=== PATIENT | female | born 1990 | race Caucasian/White ===

== ENCOUNTER 2023-05-25 16:41 | Inpatient (IN) ==
--- NOTE | 2023-05-25 16:54 | History & Physical Report ---
Date of Service May 25, 2023 Assessment & Plan (1) Polyhydramnios: Plan: Repeat section. The patient was counseled to the nature of the procedure including alternatives such as labor. Risks were discussed including bleeding infection injury to bowel bladder ureter vessels and even baby. The risks of internal organ injury were discussed as being higher with prior sections. Deep Vein Thrombosis, pulmonary embolus and breakdown of the incision discussed. Deep vein thrombosis pulmonary embolus hernia and failure of the incision to heal were discussed Patient verbalized understanding of this and was given ample time to ask questions Examination is 6 cm bulging membranes 100% nothing palpable as far as presenting part ultrasounds is done and there is a floating head to slightly transverse to the right side Patient also wishes bilateral tubal ligation salpingectomy Admission and Anticipated Discharge Date Admission Date: May 25, 2023 History of Present Illness Primary Care Provider: Dulce Maddox MD JAZIEL Calculator Estimated Delivery Date Method Current WG Current Estimate 05/28/23 LMP (Certain) 39w 2d LMP: 08/21/22 : 2 Full term: 1 Premature: 0 Total Number of Induced Abortions: 0 Total Number of Spontaneous Abortions: 0 Ectopics: 0 Multiple births: 1 Number of Living Children: 2 and Delivery Plans COVID POSITIVE 02/25/23 (SX STARTED 02/21/23) GDM in prior *Begin Monthly growth US @ 24wks. H/o CS (twins, cord prolapse) - Desires repeat CS, considering btl C/S SCHEDULED FOR 05/26/[address] RIZVI Iron deficiency anemia *Heme consult Polyhydramnios *Weekly NSTs if greater or equal to 12 *Weekly AFIs @ Dx *If pocket >16 refer to [facility] *Deliver between [id number] Allergies Allergy/AdvReac Type Severity Reaction Status Date / Time No Known Drug Allergies Allergy Unknown Verified 05/23/23 15:08 Home Medications Medication Instructions Recorded Confirmed Type docosahexaenoic acid 200 mg 200 mg PO QAM 10/07/22 05/23/23 History capsule ( DHA) acetone (urine) test (Ketone Urine #50 ea 12/27/22 05/23/23 Rx Test strips) blood sugar diagnostic (OneTouch #150 ea 12/27/22 05/23/23 Rx Verio test strips) blood-glucose meter (OneTouch #1 ea 12/27/22 05/23/23 Rx Verio Reflect Meter) lancets 33 gauge (ConnorTouch Delica #150 ea 12/27/22 05/23/23 Rx Plus Lancet) ferrous sulfate 325 mg (65 mg 325 mg PO UD 05/07/23 05/23/23 History iron) capsule,extended release vitamin B12 500 mcg-folic acid 400 1 tab PO QAM 05/07/23 05/23/23 History mcg tablet Patient History Medical History (Updated 05/25/23 @ 16:50 by Maida Thapa RN) History of COVID-19 (~01/2023) resolved Hx of renal calculi LPRD (laryngopharyngeal reflux disease) Gestational diabetes Diet controlled Surgical History History of removal of skin mole facial, benign History of History of wisdom tooth extraction Family History Mother Hearing loss Hypertension Grandmother (Maternal) Hypertension Stroke Heart disease Grandfather (Maternal) Hypertension Stroke Heart disease Aunt Ovarian cancer maternal great aunt Other Cancer No family history of adverse response to anesthesia No family history of bleeding disorder Denies family history of Prostate cancer Breast cancer Colorectal cancer Social History Smoking Status: Never smoker Second Hand Exposure: No; Do You Dip or Chew Tobacco: No; Hx Alcohol Use: No Hx Substance Use: No Preferred Language: [place]an Communication Ability: Effective Retail Merchandiser Required: No Beliefs That Will Affect Care: None marital status: marital status details: Tim 37 [phone] Current Living Situation: Spouse and Family Current Living Situation Comment: lives with 2 kids, spouse, 2 dog, 1 cat current occupational status: employed current occupation: [employer] Feels Safe at Home: Yes Assistive Devices: Glasses Physical Exam Constitutional: WD/WN, vitals as above well developed and well nourished Respiratory: normal respiratory effort, lungs clear to auscultation normal respiratory effort Cardiovascular: RRR, no murmur, no edema Gastrointestinal (Abdomen): normal bowel sounds, soft, nontender, no hepatosplenomegaly Coding Level of Care Code None Diagnoses Polyhydramnios O40.9XX0
--- NOTE | 2023-05-25 16:59 | Anesthesiology Consultation ---
Date of Service May 25, 2023 Assessment & Plan Chart Review Chart Review: Acceptable Risk for Surgery Consults Requested none ASA [id number] Proposed Anesthesia Anesthesia Type: Spinal Risk / Benefits Reviewed With: PT / POA / Parent / Guardian, Accepts Plan and Informed Consent Obtained History Surgery Operation Date: 05/25/23 16:45 Proposed Procedures p Section in LD - J. Chucky Finney MD, FACOG Allergies Allergy/AdvReac Type Severity Reaction Status Date / Time No Known Drug Allergies Allergy Unknown Verified 05/23/23 15:08 Medications Home Medications Medication Instructions Recorded Confirmed Last Taken docosahexaenoic acid 200 mg 200 mg PO QAM 10/07/22 05/23/23 Unknown capsule ( DHA) acetone (urine) test (Ketone Urine #50 ea 12/27/22 05/23/23 Unknown Test strips) blood sugar diagnostic (OneTouch #150 ea 12/27/22 05/23/23 Unknown Verio test strips) blood-glucose meter (OneTouch #1 ea 12/27/22 05/23/23 Unknown Verio Reflect Meter) lancets 33 gauge (OneTouch Delica #150 ea 12/27/22 05/23/23 Unknown Plus Lancet) ferrous sulfate 325 mg (65 mg 325 mg PO UD 05/07/23 05/23/23 Unknown iron) capsule,extended release vitamin B12 500 mcg-folic acid 400 1 tab PO QAM 05/07/23 05/23/23 Unknown mcg tablet NPO Date Last Intake of Fluids: 05/25/23 Time Last Intake of Fluids: 14:00 Date Last Intake of Solids: 05/25/23 Time Last Intake of Solids: 14:00 Past Medical History Medical History History of COVID-19 (~01/2023) resolved Hx of renal calculi LPRD (laryngopharyngeal reflux disease) Gestational diabetes Diet controlled Exercise / Class Metabolic Activity II 4-5 Yardwork/Stairs/Walk up hill Past Family History Family History Mother Hearing loss Hypertension Grandmother (Maternal) Hypertension Stroke Heart disease Grandfather (Maternal) Hypertension Stroke Heart disease Aunt Ovarian cancer maternal great aunt Other Cancer No family history of adverse response to anesthesia No family history of bleeding disorder Denies family history of Prostate cancer Breast cancer Colorectal cancer Past Surgical History Surgical History History of removal of skin mole facial, benign History of History of wisdom tooth extraction Past Anesthesia History No Hx of Anesthesia Complications and No Family Hx of Anesthesia Complications History of PONV No Hx of PONV and No Hx of Motion Sickness Social History Smoking Status: Never smoker Do You Dip or Chew Tobacco: No Hx Alcohol Use: No Hx Substance Use: No substance use type: does not use Physical Exam Vital Signs Last Vital Signs Pulse 102 H 05/25/23 16:54 BP 143/82 H 05/25/23 16:54 ENMT Mouth: no dentition abnormality Thyromental Distance: > or= 3.5 Finger Breadths Mallampati Class: II Neck normal visual inspection Respiratory normal respiratory effort Auscultation: lungs clear to auscultation bilaterally Cardiovascular Rate/Rhythm: regular rate and regular rhythm
[2023-05-25] MEDS: LACTATED RINGER'S 1,000 ML IV SCH (17:02)
[2023-05-25] MEDS ORDERED: fentaNYL citrate PF 100 MCG/2 ML VIAL ONE (17:02)
[2023-05-25] MEDS ORDERED: MoRPHine SULFATE PF 1 MG/ML 10 ML AMP/VIAL ONE (17:03)
[2023-05-25] MEDS: CITRIC ACID/SODIUM CITRATE 15 ML UDC PO SCH (17:03)
[2023-05-25] MEDS: ceFAZolin 2000MG 2,000 MG/15 ML SYR IV SCH (17:03)
[2023-05-25 17:06] LABS: Basophils # (auto) 0.05 K/uL (0.00-0.20); Basophils % (auto) 0.4 %; Eosinophils # (auto) 0.02 K/uL (0.00-0.50); Eosinophils % (auto) 0.2 %; Hemoglobin 12.6 g/dl (12.0-16.0); Immature Granulocytes # (auto) 0.17 K/uL (0.01-0.20); Immature Granulocytes % (auto) 1.4 %; Lymphocytes # (auto) 1.48 K/uL (1.20-3.40); Lymphocytes % (auto) 12.6 %; Mean Corpuscular Hemoglobin 28.6 pg (25.0-34.0); Mean Corpuscular Hgb Conc 32.3 g/dL (32.0-36.0); Mean Corpuscular Volume 88.4 fL (80.0-100.0); Mean Platelet Volume 9.5 fL (9.4-12.4); Monocytes # (auto) 0.98 K/uL (0.11-0.59); Monocytes % (auto) 8.3 %; Neutrophils # (auto) 9.04 K/uL (1.40-6.50); Neutrophils % (auto) 77.1 %; Platelet Count 238 K/uL (130-400); RDW Coefficient of Variation 18.5 % (11.5-14.5); RDW Standard Deviation 56.7 fL (36.4-46.3); Red Blood Count 4.41 M/uL (4.20-5.40); White Blood Count 11.74 K/ul (4.8-10.8)
[2023-05-25] MEDS ORDERED: MEPERIDINE HCL 25 MG/ML CARP/VIAL IV PRN (17:22)
[2023-05-25] MEDS ORDERED: LACTATED RINGER'S 500 ML IV PRN (17:22)
[2023-05-25] MEDS ORDERED: NALOXONE HCL 0.4 MG/1 ML VIAL/CARP IV PRN (17:22)
[2023-05-25] MEDS ORDERED: MoRPHine SULFATE PF 1 MG/ML 10 ML AMP/VIAL INT SPINAL ONE (17:22)
[2023-05-25] MEDS ORDERED: NALOXONE HCL 1 MG in SODIUM CHLORIDE 0.9% 1,000 ML IV PRN (17:22)
[2023-05-25] MEDS ORDERED: NALBUPHINE HCL 5 MG in SYRINGE 0 ML IV PRN (17:22)
[2023-05-25] MEDS ORDERED: diphenhydrAMINE 50 MG/ML VIAL IV PRN ×2 (17:22→19:08)
[2023-05-25] MEDS ORDERED: NALOXONE HCL 0.08 MG in SYRINGE 1.8 ML IV PRN (17:22)
[2023-05-25] MEDS ORDERED: ePHEDrine sulfate 50 MG/ML AMP IV PRN (17:22)
[2023-05-25] MEDS ORDERED: ONDANSETRON INJ 2 MG/ML 2 ML VIAL IV PRN ×2 (17:22→19:08)
[2023-05-25] MEDS ORDERED: SODIUM CHLORIDE 0.9% 1,000 ML IV SCH (17:30)
[2023-05-25] MEDS ORDERED: DC INTRASPINAL MORPHINE SCH (17:30)
[2023-05-25] MEDS ORDERED: NO NARCOTICS OR SEDATIVES SCH (17:30)
[2023-05-25] MEDS ORDERED: OXYTOCIN 10 UNITS/ML VIAL ONE (17:33)
[2023-05-25] MEDS ORDERED: ONDANSETRON INJ 2 MG/ML 2 ML VIAL ONE (17:33)
[2023-05-25 17:57] LABS: Base Excess Cord Arterial Bld -2.1 mEq/L (-9-1.8); CO2 Cord Arterial Blood 58 mmHg (39.1-73.5); HCO3 Cord Arterial Blood 26 mmol/L (19.7-28.5); Oxygen Sat Cord Arterial Blood < 60.0 % (<60); PO2 Cord Arterial Blood < 20 mmHg (4.1-31.7); pH Cord Arterial Blood 7.26 (7.1-7.38)
[2023-05-25 17:58] LABS: Base Excess Cord Venous Blood -1.8 mEq/L (-7.7-1.9); Cord Venous Blood HCO3 24 mmol/L (18.4-26.8); Cord Venous Blood PCO2 45 mmHg (30.4-57.2); Cord Venous Blood PO2 21 mmHg (14.1-43.3); Cord Venous Blood pH 7.34 (7.20-7.44); O2 Saturation Cord Venous Bld < 60.0 % (<68)
--- NOTE | 2023-05-25 18:01 | Operative Report ---
PG Post Operative Report Pre & Post Diagnosis Operation Date: 05/25/23 16:45 <No data on this case meets the specified criteria> Previous section active labor request permanent sterilization I identified the patient and participated in the time-out.: Yes Procedure Operation Date: 05/25/23 16:45 <No data on this case meets the specified criteria> Low segment transverse section and bilateral tubal ligation Surgeon Shiela Finney MD, FACOG Dinkey Engine Firer/Fireman Kayla BUTTS Estimated Blood Loss 600 Findings Consistent with Post-Op Diagnosis Specimens Cord blood cord gas Description of Procedure Regional anesthetic had been given by anesthesia patient was prepped and draped with a leftward tilt preoperative antibiotics had been given in appropriate timing by anesthesiology. Once the prep was allowed to fully dry timeout was performed. Pickups with teeth were used to test the incision area was found to be adequate for incision as the patient did not feel sharp pain. Scalpel was used to make a Pfannenstiel incision on the lower abdomen. We then cut through the subcutaneous fat down to the level of the anterior rectus sheath fascia this was cut in the midline and then extended laterally with the curved Dave scissors. At this stage we then placed 2 Lizette clamps on the anterior aspect of the fascia. Using the curved Dave's we are able to dissect the fascia superiorly away from the rectus muscles. Care was taken to maintain hemostasis. Lizette clamps were then placed to the inferior aspect of the anterior sheath of the fascia. Fascia was then dissected away from the rectus muscles inferiorly towards the pubic bone. A Lizette was then placed in the midline both inferiorly and superiorly. This was to allow exposure by retraction rectus muscles were in the midline with were then able to cut through the peritoneum and then enter the peritoneal cavity. Opening was enlarged to allow exposure of the peritoneal cavity both superiorly and inferiorly. Once adequate space was obtained a bladder retractor was placed to expose the lower segment Metzenbaums were used to dissect the bladder flap inferiorly away from the uterus. This was done sharply bladder retractor was then repositioned to expose the lower segment of the uterus Fresh scalpel was used to make a low transverse incision on the uterus. Uterus was then entered bluntly with the operators finger, membranes ruptured and the opening was enlarged using the operators fingers bluntly pulling superiorly and inferiorly to allow exposure. Baby was delivered by first flexion of the head elevation of the head out of the pelvis and then pressure by the assistant press operator offset on the maternal abdomen. Baby's head was then delivered mouth and then nares were suctioned and then usi ng gentle traction the baby was fully delivered. Live vigorous infant. Fluid was clear cord clamped and cut cord gases obtained cord blood obtained baby handed to pediatrics. Placenta removed was removed with traction we ensure the entire placenta was removed with a moist lap sponge into the uterus. Note baby's head was floating at the time of rupture of membranes but I was able to guided down into the pelvis for delivery Uterus was then exteriorized. IV Pitocin had been started by anesthesia tone improved there were no extensions the uterus was then closed using 0 Monocryl in a 2 layer closure the first layer closed in a running locked fashion from left to right and then a second closure from left to right in a running nonlocked fashion. At this stage hemostasis was excellent. Confirmed with the patient verbally that she wishes to proceed with bilateral tubal ligation this was performed using LigaSure grasping the distal end of the right fallopian tube and using the LigaSure to coagulate and cut the mesovarium attachments of the ovary once the tube was fully removed down to the medial and close to the uterus it was sent to pathology the exact same process was repeated on the right now only placed the uterus back in the pelvic cavity the uterine this was expected along with fallopian tube areas and these were hemostatic Uterus was placed back in the peritoneal cavity with suction irrigation out and inspection of the uterus at this stage revealed excellent hemostasis Retractors were removed urine color was clear at this stage of the case we inspected the rectus muscles they were hemostatic fascia was closed with 0 Vicryl subcutaneous fat was irrigated and closed with 3-0 Vicryl skin closed with 4-0 subcuticular Monocryl I attest to the content of the Intraoperative Record and any orders documented therein. Any exceptions are noted below. OB Procedure Charges 24236
--- NOTE | 2023-05-25 18:22 | Anesthesiology Progress Note ---
Date of Service May 25, 2023 Anesthesia Post Procedure Vital Signs Vital Signs: Temp Pulse Resp BP Pulse Ox 05/25/23 18:20 88 120/58 L 05/25/23 18:14 88 96 05/25/23 18:09 92 H 98 05/25/23 18:04 96 05/25/23 18:04 91 H 05/25/23 18:04 86 125/58 L 05/25/23 16:54 102 H 143/82 H 05/25/23 16:51 98.2 F 20 Transfer of Care Handoff Completed per policy Notes Mental Status: alert / awake / arousable and participated in evaluation Nausea / Vomiting: adequately controlled Pain: adequately controlled Airway Patency, RR, SpO2: stable & adequate BP & HR: stable & adequate Hydration State: stable & adequate Neuraxial Anesthesia: was administered and sensory block is resolving Anesthetic Complications: no major complications apparent and Pt Satisfied with anesthetic care
[2023-05-25] MEDS ORDERED: LACTATED RINGER'S 1,000 ML IV SCH (19:08)
[2023-05-25] MEDS ORDERED: PROMETHAZINE HCL 25 MG in SODIUM CHLORIDE 0.9% 50 ML IV PRN (19:08)
[2023-05-25] MEDS ORDERED: oxyCODONE/ACETAMINOPHEN 5mg/325mg TAB PO PRN (19:08)
[2023-05-25] MEDS ORDERED: MAGNESIUM HYDROXIDE SUSP 30 ML UDC PO PRN (19:08)
[2023-05-25] MEDS ORDERED: BENZOCAINE 20% SPRY 85 APPLN/85 GM CAN EXT PRN (19:08)
[2023-05-25] MEDS ORDERED: DIPHTHER/TETAN/PERTUS Vaccine (Tdap, Adol/Adult) 0.5mL IM ONE (19:08)
[2023-05-25] MEDS ORDERED: diphenhydrAMINE Capsule 25 MG CAP PO PRN (19:08)
[2023-05-25] MEDS ORDERED: SENNA 8.6 MG TAB PO PRN (19:08)
[2023-05-25] MEDS ORDERED: HYDROCORTISONE ACETATE 25 MG SUPP PR PRN (19:08)
[2023-05-25] MEDS: OXYTOCIN 20 UNITS/LR 1,002 ML IV SCH (20:15)
[2023-05-25] MEDS: SIMETHICONE 80 MG CHEW PO SCH (22:47)
[2023-05-25] MEDS: DOCUSATE SODIUM 100 MG CAP PO SCH (22:47)
[2023-05-26] MEDS: KETOROLAC 30 MG/ML VIAL IV PRN (03:47)
[2023-05-26 06:30] LABS: Basophils # (auto) 0.05 K/uL (0.00-0.20); Basophils % (auto) 0.4 %; Eosinophils # (auto) 0.03 K/uL (0.00-0.50); Eosinophils % (auto) 0.2 %; Hematocrit (blood only) 35.2 % (37.0-47.0); Hemoglobin 11.6 g/dl (12.0-16.0); Immature Granulocytes # (auto) 0.11 K/uL (0.01-0.20); Immature Granulocytes % (auto) 0.9 %; Lymphocytes # (auto) 1.04 K/uL (1.20-3.40); Lymphocytes % (auto) 8.5 %; Mean Corpuscular Hemoglobin 28.6 pg (25.0-34.0); Mean Corpuscular Volume 86.9 fL (80.0-100.0); Monocytes # (auto) 0.86 K/uL (0.11-0.59); Neutrophils # (auto) 10.18 K/uL (1.40-6.50); Platelet Count 203 K/uL (130-400); RDW Coefficient of Variation 18.5 % (11.5-14.5); RDW Standard Deviation 57.1 fL (36.4-46.3); Red Blood Count 4.05 M/uL (4.20-5.40); White Blood Count 12.27 K/ul (4.8-10.8)
--- NOTE | 2023-05-26 07:27 | Obstetrical Progress Note ---
Date of Service <Xochitl Joyce MD - Last Filed: 05/26/23 07:27> May 26, 2023 Assessment & Plan <Xochitl Joyce MD - Last Filed: 05/26/23 07:27> (1) S/P : (2) Encounter for assessment: Plan Patient with the above mentioned history and findings was evaluated at bedside and found awake, alert, oriented in all spheres, afebrile, and in no acute distress. Vital signs showed no fever and blood pressures remained stable. Her blood type is O pos and today's hemoglobin is adequate at 11.6 g/dL. Serologies are negative for GBS and patient is Rubella immune. Overall, patient is doing well clinically. Therefore, will encourage ambulation as tolerated and will resume regular diet. Indwelling Germain will be removed. Continue routine pp course. All questions were answered. <Shiela Finney MD, FACOG - Last Filed: 05/26/23 07:32> (1) S/P : (2) Encounter for assessment: Subjective <Xochitl Joyce MD - Last Filed: 05/26/23 07:27> Valerie is a 32 y/o female who is POD #1 following rLTCS with Tubal ligation at 39 4/7 weeks. She reports feeling well overall this morning. Refers mild abdominal cramping & 4/10 pain well managed on analgesics. Voiding through germain catheter which contains clear urine clear of blood or sediment. Has not eaten yet. Has not passed gas or had a bm yet. Has some persistent lochia with some improvement this morning. Currently . Constitutional: no fever, no chills or no sweats Denies shortness of breath or difficulty breathing. Cardiovascular: no chest pain or no palpitations Breast: no breast pain Genitourinary (female): no dysuria Neurologic: no headache(s) Denies changes in vision. Physical Exam <Xochitl Joyce MD - Last Filed: 05/26/23 07:27> General: Alert. Oriented to person, time, and place. Afebrile. No acute distress. Cardiac: Regular rate and rhythm, no murmurs/rubs/gallops. Respiratory: Clear to auscultation bilaterally a/p, no wheezes/rales/rhonchi. No increased work of breathing. Symmetrical chest rise. No respiratory distress. Abdomen: Soft, nontender, nondistended. Bowel sounds present. Low transverse surgical scar clean, without surrounding erythema or suppuration, and healing well. Uterus: Uterine fundus firm, appropriately tender, and palpable at umbilicus. Lower Extremities: mild bilateral LE swelling. No deep calf pain. Delicia's negative bilaterally. Psych: Euthymic affect. Mood and affect congruence. Regular speech rate and content. Results & Data <Xochitl Joyce MD - Last Filed: 05/26/23 07:27> Vital Signs (Past 12 Hours) Vital Signs Temp Pulse Pulse Resp BP BP Pulse Ox 05/26/23 06:15 18 96 05/26/23 05:02 18 96 05/26/23 04:02 18 97 05/26/23 03:34 18 99 05/26/23 03:34 36.6 C 79 18 108/70 99 05/26/23 02:02 18 95 05/26/23 01:10 18 96 05/26/23 00:40 37.0 C 96 H 18 116/72 96 05/26/23 00:30 18 98 05/25/23 23:13 18 95 05/25/23 22:11 18 97 05/25/23 21:25 18 98 05/25/23 20:30 18 99 05/25/23 20:30 36.6 C 78 18 120/73 99 05/25/23 20:16 79 99 05/25/23 20:14 73 119/71 05/25/23 20:11 83 99 05/25/23 20:06 77 99 05/25/23 20:04 82 113/69 05/25/23 20:01 76 99 05/25/23 19:56 79 99 05/25/23 19:54 76 113/67 05/25/23 19:51 75 99 05/25/23 19:46 76 99 05/25/23 19:44 73 121/68 05/25/23 19:41 80 97 05/25/23 19:36 77 98 05/25/23 19:34 76 121/67 05/25/23 19:31 72 98 05/25/23 19:26 72 98 05/25/23 19:25 79 120/62 O2 Del Method 05/26/23 06:15 05/26/23 05:02 05/26/23 04:02 05/26/23 03:34 05/26/23 03:34 Room Air 05/26/23 02:02 05/26/23 01:10 05/26/23 00:40 Room Air 05/26/23 00:30 05/25/23 23:13 05/25/23 22:11 05/25/23 21:25 05/25/23 20:30 05/25/23 20:30 Room Air 05/25/23 20:16 05/25/23 20:14 05/25/23 20:11 05/25/23 20:06 05/25/23 20:04 05/25/23 20:01 05/25/23 19:56 05/25/23 19:54 05/25/23 19:51 05/25/23 19:46 05/25/23 19:44 05/25/23 19:41 05/25/23 19:36 05/25/23 19:34 05/25/23 19:31 05/25/23 19:26 05/25/23 19:25 Supervising Physician <Shiela Finney MD, FACOG - Last Filed: 05/26/23 07:32> Co-Signing Physician Notes Resident Physician Supervision Note: I was present with [Name of resident] during the history and exam. I discussed the case with the resident and agree with the findings and plan as documented in the note. Any exceptions or clarifications are listed here: [None] Documented By: Shiela Finney MD, FACOG
[2023-05-26] MEDS: FERROUS SULFATE 325 MG TAB PO SCH (07:56)
[2023-05-26] MEDS: PRENATAL VITAMIN 1 TAB PO SCH (07:56)
[2023-05-26] MEDS ORDERED: diphenhydrAMINE Capsule 25 MG CAP PO PRN (11:24)
[2023-05-26] MEDS ORDERED: diphenhydrAMINE 50 MG/ML VIAL IV PRN (11:24)
[2023-05-26] MEDS ORDERED: KETOROLAC 30 MG/ML VIAL IV PRN (11:24)
[2023-05-26] MEDS ORDERED: PROMETHAZINE HCL 25 MG in SODIUM CHLORIDE 0.9% 50 ML IV PRN (11:24)
[2023-05-26] MEDS: IBUPROFEN 600 MG TAB PO PRN (12:07)
[2023-05-26] MEDS: oxyCODONE/ACETAMINOPHEN 5mg/325mg TAB PO PRN (12:08)
[2023-05-26] MEDS: bisacodyL 5 MG TABEC PO SCH (21:13)
[2023-05-27 06:42] LABS: Hematocrit (blood only) 33.1 % (37.0-47.0); Hemoglobin 10.9 g/dl (12.0-16.0)
--- NOTE | 2023-05-27 07:04 | Obstetrical Progress Note ---
Date of Service <Xochitl Joyce MD - Last Filed: 05/27/23 07:04> May 27, 2023 Assessment & Plan <Xochitl Joyce MD - Last Filed: 05/27/23 07:04> (1) S/P : (2) Encounter for assessment: Plan Patient with the above mentioned history and findings was evaluated at bedside and found awake, alert, oriented in all spheres, afebrile, and in no acute distress. Vital signs showed no fever and blood pressures remained stable. Her blood type is O pos and today's hemoglobin is adequate at 10.9 g/dL. Serologies are negative for GBS and patient is Rubella immune. Overall, patient is doing well clinically and meeting the desired milestone for her course. Therefore, will discharge patient today. Patient was counselled on discharge instructions. She is to make an appointment with her OB for 6 weeks after discharge for follow up evaluation. All questions were answered. <Shaneka Lopez DO - Last Filed: 05/27/23 08:42> (1) S/P : (2) Encounter for assessment: Subjective <Xochitl Joyce MD - Last Filed: 05/27/23 07:04> Valerie is a 32 y/o female who is POD #2 following rLTCS with Tubal ligation at 39 4/7 weeks. She reports feeling well overall this morning. Refers mild abdominal cramping & 3/10 pain well managed on analgesics. Voiding spontaneously. Tolerating diet and able to ambulate some. Has passed gas but has not had a bm yet. Has some persistent lochia with some improvement this morning. Currently . Constitutional: no fever, no chills or no sweats Denies shortness of breath or difficulty breathing. Cardiovascular: no chest pain or no palpitations Breast: no breast pain Genitourinary (female): no dysuria Neurologic: no headache(s) Denies changes in vision. Physical Exam <Xochilt Joyce MD - Last Filed: 05/27/23 07:04> General: Alert. Oriented to person, time, and place. Afebrile. No acute distress. Cardiac: Regular rate and rhythm, no murmurs/rubs/gallops. Respiratory: Clear to auscultation bilaterally a/p, no wheezes/rales/rhonchi. No increased work of breathing. Symmetrical chest rise. No respiratory distress. Abdomen: Soft, nontender, nondistended. Bowel sounds present. Low transverse surgical scar clean, without surrounding erythema or suppuration, and healing well. Uterus: Uterine fundus firm, appropriately tender, and palpable at umbilicus. Lower Extremities: mild bilateral LE swelling. No deep calf pain. Delicia's negative bilaterally. Psych: Euthymic affect. Mood and affect congruence. Regular speech rate and content. Results & Data <Xochitl Joyce MD - Last Filed: 05/27/23 07:04> Vital Signs (Past 12 Hours) Vital Signs Temp Pulse Resp BP Pulse Ox O2 Del Method 05/27/23 00:10 36.7 C 82 18 106/68 96 Room Air 05/26/23 21:12 36.8 C 85 18 107/69 95 Room Air Supervising Physician <Shaneka Lopez DO - Last Filed: 05/27/23 08:42> Co-Signing Physician Notes Resident Physician Supervision Note: I was present with Dr. Joyce during the history and exam. I discussed the case with the resident and agree with the findings and plan as documented in the note. Any exceptions or clarifications are listed here: POD#2, desires DC home, reviewed instructions. Followup 6w PP. Rx #20 tabs percocet sent to [facility]. Documented By: Shaneka Lopez DO
[2023-05-27] MEDS ORDERED: bisacodyL 10 MG SUPP PR PRN (17:57)
== END 2023-05-27 18:25 | disposition home or self-care (01) | DRG 785 ==
LOC: OPB 16:41 → 4S1 16:43 → 4E2 20:33